=== PATIENT | male | born 1955 | race Caucasian/White ===

== ENCOUNTER 2019-03-30 10:25 | Emergency (ER) | payer OTHER ==
[~2019-03-30] VITALS: Ht 170.2 cm; Wt 72.0 kg
[2019-03-30 10:35] VITALS: BP 162/82; PULSE 91; RESP 16; Ht 170.2 cm; Wt 72.0 kg
[2019-03-30] MEDS ORDERED: ASPIRIN 325 MG TAB PO STA (14:50)
[2019-03-30] MEDS ORDERED: NITROGLYCERIN 2% 1 GM OINT PKT TD STA (14:50)
--- NOTE | 2019-03-30 16:25 | ERD ---
ER Documentation Chief Complaint Chief Complaint pt is bib self with c/o chest pain starting last night at 5 pm HPI This is a 63-year-old male who is here for chest pain. The patient states that he is a smoker and does not have any other medical problems. He states that yesterday he had a few minutes of substernal chest pain at 5 PM and then it went away. He said he was pain-free and to happen again this morning for a few sarah iveth. He says he was a little short of breath but no radiation no diaphoresis no nausea dizziness or syncope. Currently he is pain-free ROS All systems reviewed and are negative except as per history of present illness. Medications Home Meds No Active Prescriptions or Reported Meds Allergies Allergies: Coded Allergies: No Known Allergy (Unverified , 03/30/19) FmHx Family History: No coronary disease Physical Exam Vitals Vital Signs Date Temp Pulse Resp B/P (MAP) Pulse Ox O2 O2 Flow FiO2 Time Delivery Rate 03/30/19 Nasal 15:16 Cannula 03/30/19 98.3 91 16 162/82 98 10:35 (108) Physical Exam Const: Well-developed, well-nourished Head: Atraumatic, normocephalic Eyes: Normal Conjunctiva, PERRLA, EOMI, normal sclera, no nystagmus ENT: Normal External Ears, Nose and Mouth, moist mucus membranes. Neck: Full range of motion. No meningismus, no lymphadenopathy. Resp: Clear to auscultation bilaterally, no wheezing, rhonchi, rales Cardio: Regular rate and rhythm, no murmurs, S1 S2 present Abd: Soft, non tender x 4, non distended. Normal bowel sounds, no guarding or rebound, no pulsitile abdominal masses or bruits Skin: No petechiae or rashes, no ecchymosis , no maculopapular rash Back: No midline or flank tenderness Ext: No cyanosis, or edema, FROM x 4, normal inspection, neurovascularly intact x 4 Neur: Awake and alert, STR 5/ x 4, sensation intact x 4, no focal findings, cerebellum intact Psych: Normal Mood and Affect Result Diagram: 03/30/19 1503 03/30/19 1503 Results 24 hrs Laboratory Tests Test 03/30/19 15:03 White Blood Count 11.2 10^3/ul Red Blood Count 5.84 10^6/ul Hemoglobin 12.7 g/dl Hematocrit 39.2 % Mean Corpuscular Volume 67.1 fl Mean Corpuscular Hemoglobin 21.7 pg Mean Corpuscular Hemoglobin Concent 32.4 g/dl Red Cell Distribution Width 15.9 % Platelet Count 224 10^3/UL Mean Platelet Volume 10.4 fl Immature Granulocytes % 0.400 % Neutrophils % 72.3 % Lymphocytes % 14.2 % Monocytes % 12.8 % Eosinophils % 0.1 % Basophils % 0.2 % Nucleated Red Blood Cells % 0.0 /100WBC Immature Granulocytes # 0.040 10^3/ul Neutrophils # 8.1 10^3/ul Lymphocytes # 1.6 10^3/ul Monocytes # 1.4 10^3/ul Eosinophils # 0.0 10^3/ul Basophils # 0.0 10^3/ul Nucleated Red Blood Cells # 0.0 10^3/ul Sodium Level 138 mmol/L Potassium Level 3.9 mmol/L Chloride Level 102 mmol/L Carbon Dioxide Level 26 mmol/L Anion Gap 10 Blood Urea Nitrogen 14 mg/dl Creatinine 0.78 mg/dl Est Glomerular Filtrat Rate mL/min > 60 mL/min Glucose Level 103 mg/dl Calcium Level 9.3 mg/dl Total Bilirubin 1.0 mg/dl Direct Bilirubin 0.00 mg/dl Indirect Bilirubin 1.0 mg/dl Aspartate Amino Transf (AST/SGOT) 21 IU/L Alanine Aminotransferase (ALT/SGPT) 24 IU/L Alkaline Phosphatase 82 IU/L Troponin I < 0.012 ng/ml Total Protein 7.5 g/dl Albumin 4.1 g/dl Globulin 3.40 g/dl Albumin/Globulin Ratio 1.20 Current Medications Medications Dose Sig/Darrius Start Time Status Last (Trade) Ordered Route PRN Stop Time Admin Dose Reason Admin Aspirin 325 mg ONCE STAT 03/30/19 DC 03/30/19 (Aspirin) PO 14:50 03/30/19 15:13 14:52 1 inch ONCE STAT 03/30/19 DC 03/30/19 Nitroglycerin TD 14:50 03/30/19 15:13 14:52 (Nitroglyceri n 2% Oint) Procedures/MDM MR #: [id number] DOS: 03/30/19 7010 Ordering MD: SORAIDA BARAHONA DO Location: E/R Room/Bed: PROCEDURE: XR Chest 1 View. CLINICAL INDICATION: Chest pain. TECHNIQUE: Single view of the chest was obtained. COMPARISON: None. FINDINGS: Support lines and tubes: None. Mediastinum: Within normal limits of size. Lungs: Diffuse interstitial prominence in both lungs. Scattered atelectasis in both lungs. Scarring at the lung apices. No consolidations. No pneumothorax. Osseous structures: Intact. Osteopenia. Degenerative changes in the shoulders. Mild scoliosis in the lower thoracic spine., convex to the right. Other: None. IMPRESSION: Scattered atelectasis in both lungs. Scarring at the lung apices. Diffuse mild interstitial prominence in both lungs. Interstitial prominence could be chronic or reflect mild interstitial edema. RPTAT: AA .David Villafana MD, Date Time Electronically viewed and signed by .David Villafana MD, MD on 03/30/2019 15:30 .P/ CC: SORAIDA BARAHONA DO [id number] EKG: Rate/Rhythm: Normal sinus rhythm with premature supraventricular complexes QRS, ST, QT: NORMAL MD, QRS, prolonged QT] Impression: Abnormal EKG The patient is not willing to stay in the hospital because he says he has a sick that he has to take care of at home. He is willing to sign out AGAINST MEDICAL ADVICE. We did review with him the risk of leaving AMA including with the nurse Macho who speaks [place] The patient understands the risk of leaving and is still willing to do so. He is awake and alert oriented and coherent to make his own decisions. I will provide him with a bottle of sublingual nitroglycerin Departure Diagnosis: Primary Impression: Chest pain Chest pain type: unspecified Qualified Codes: R07.9 - Chest pain, unspecified Condition: Stable SORAIDA BARAHONA DO March 30, 2019 16:25
[2019-03-30] MEDS ORDERED: NITR0.4T39 SL (16:27)
== END 2019-03-30 16:42 | disposition left against medical advice (07) ==
LOC: E/R 10:25
DX: R07.9 Chest pain, unspecified (principal)
CPT/HCPCS: 36415; 71045; 80053; 84484; 85025; Z7502; Z7610; 93005